=== PATIENT | female | born 1980 | race Caucasian/White ===

== ENCOUNTER 2017-07-16 21:58 | Emergency (ER) | payer MEDICAID ==
[~2017-07-16] VITALS: Ht 165.1 cm; Wt 81.1 kg
[~2017-07-16 21:58] MED LIST: ALBU8.5H4 IH; CLIN-80 PO; GUAI120015 PO
[2017-07-16] MEDS ORDERED: PRED20TA PO (23:53)
[2017-07-16] MEDS ORDERED: albuterol 2.5 MG/3 ML nebule NEB ONE (23:55)
[2017-07-16] MEDS ORDERED: predniSONE 20 mg tablet PO ONE (23:55)
[2017-07-17 00:45] VITALS: BP 133/89
== END 2017-07-17 00:45 | disposition home or self-care (01) ==
LOC: ER 22:00
DX: J45.901 Unspecified asthma with (acute) exacerbation (principal); Z87.442 Personal history of urinary calculi; Z90.49 Acquired absence of other specified parts of digestive tract; Z90.710 Acquired absence of both cervix and uterus; Z56.0 Unemployment, unspecified; Z79.899 Other long term (current) drug therapy; Z91.041 Radiographic dye allergy status; Z88.6 Allergy status to analgesic agent
CPT/HCPCS: 71046; 93005; 94640; 94760; 99284; J7512

== ENCOUNTER 2019-04-14 16:47 | Emergency (ER) | payer MEDICAID ==
[~2019-04-14] VITALS: Ht 165.1 cm; Wt 81.8 kg
[~2019-04-14 16:47] MED LIST changes: -CLIN-80 PO; +CLIN-90 PO
[2019-04-14] MEDS ORDERED: acetaminophen 325mg tablet PO ONE (17:10)
[2019-04-14 18:15] VITALS: BP 118/79
[2019-04-14] MEDS ORDERED: penicillin G benzathine 1.2 million unit/2ml syringe IM ONE (18:45)
[2019-04-14] MEDS ORDERED: AZIT250T83 PO (18:59)
[2019-04-14] MEDS ORDERED: IBUP-1984 PO (18:59)
== END 2019-04-14 19:16 | disposition home or self-care (01) ==
LOC: ER 16:48
DX: S10.91XA Abrasion of unspecified part of neck, initial encounter (principal); J45.909 Unspecified asthma, uncomplicated; J02.9 Acute pharyngitis, unspecified; Z87.442 Personal history of urinary calculi; Z90.49 Acquired absence of other specified parts of digestive tract; Z90.710 Acquired absence of both cervix and uterus; Z56.0 Unemployment, unspecified; Z91.041 Radiographic dye allergy status; Z88.8 Allergy status to other drugs, medicaments and biological substances; Z79.899 Other long term (current) drug therapy; W55.03XA Scratched by cat, initial encounter; Y93.89 Activity, other specified; Y92.89 Other specified places as the place of occurrence of the external cause; Y99.8 Other external cause status
CPT/HCPCS: 87081; 87880; 96372; 99283; J0561

== ENCOUNTER 2019-08-10 05:45 | Emergency (ER) | payer MEDICAID ==
[~2019-08-10] VITALS: Ht 165.1 cm; Wt 103.7 kg
[~2019-08-10 05:45] MED LIST changes: -CLIN-90 PO; +CLIN-97 PO
[2019-08-10 05:50] VITALS: BP 131/87
[2019-08-10] MEDS ORDERED: ketorolac trometh inj. 60 MG/2 ML VIAL IM ONE (06:15)
[2019-08-10] MEDS ORDERED: ACET-3067 PO (06:17)
[2019-08-10] MEDS ORDERED: PENI500T2 PO (06:17)
== END 2019-08-10 06:49 | disposition home or self-care (01) ==
LOC: ER 05:45
DX: K02.9 Dental caries, unspecified (principal); J45.909 Unspecified asthma, uncomplicated; Z87.442 Personal history of urinary calculi; Z90.49 Acquired absence of other specified parts of digestive tract; Z90.710 Acquired absence of both cervix and uterus; Z56.0 Unemployment, unspecified; Z91.041 Radiographic dye allergy status; Z88.8 Allergy status to other drugs, medicaments and biological substances; Z79.899 Other long term (current) drug therapy
CPT/HCPCS: 96372; 99283; J1885

== ENCOUNTER 2024-03-01 18:36 | Emergency (ER) | payer MEDICAID ==
[~2024-03-01] VITALS: Ht 165.1 cm; Wt 93.2 kg
[2024-03-01 18:39] VITALS: BP 127/64; PULSE 100; RESP 17; TEMP 98.1; O2SAT 97
[2024-03-01 20:30] LABS: BASOPHILS % (AUTO) 0.5 % (0-1); EOSINOPHILS # (AUTO) 0.2 X10'3 (0-0.9); EOSINOPHILS % (AUTO) 1.7 % (0-6); HEMATOCRIT 35.6 % (35.0-45.0); HEMOGLOBIN 11.9 g/dl (12.0-16.0); LYMPHOCYTES # (AUTO) 4.8 X10'3 (1.1-4.8); LYMPHOCYTES % (AUTO) 52.2 % (21-51); MEAN CORPUSCULAR HEMOGLOBIN 28.1 PG (27.0-31.0); MEAN CORPUSCULAR HGB CONC 33.5 g/dL (33.0-36.5); MEAN CORPUSCULAR VOLUME 83.8 FL (78-98); MEAN PLATELET VOLUME 8.3 FL (7.4-10.4); MONOCYTES # (AUTO) 0.7 X10'3 (0-0.9); MONOCYTES % (AUTO) 7.5 % (2-12); NEUTROPHILS # (AUTO) 3.5 X10'3 (1.8-7.7); NEUTROPHILS % (AUTO) 38.1 % (42-75); PLATELET COUNT 288 X10'3 (140-440); RED BLOOD COUNT 4.25 X10'6 (4.20-5.60); WHITE BLOOD COUNT 9.2 X10'3 (4.5-11.0)
[2024-03-01 20:47] LABS: ALANINE AMINOTRANSFERASE 19 U/L (12-78); ALBUMIN 3.7 G/DL (3.4-5.0); ALKALINE PHOSPHATASE 119 IU/L (46-116); ANION GAP 7 (8-16); ASPARTATE AMINO TRANSFERASE 22 U/L (10-37); BILIRUBIN,TOTAL 0.2 MG/DL (0.1-1.0); BLOOD UREA NITROGEN 17 MG/DL (7-18); BUN/CREATININE RATIO 21.3 (10.0-20.0); C-REACTIVE PROTEIN 1.59 MG/DL (0.0-0.5); CALCIUM 8.9 MG/DL (8.5-10.1); CHLORIDE 106 MMOL/L (99-107); GLUCOSE 108 MG/DL (70-104); POTASSIUM 3.7 MMOL/L (3.5-5.1); SODIUM 141 MMOL/L (135-145); TOTAL PROTEIN 7.4 G/DL (6.4-8.2); eCRCL 79 ML/MIN; eGFR 77 ML/MIN
[2024-03-01 20:56] LABS: APTT 26 SECONDS (22-32); PROTHROMBIN TIME 9.7 SECONDS (9.0-12.0)
[2024-03-01 20:59] LABS: HCG SERUM QL NEGATIVE
[2024-03-01 21:01] LABS: INR 0.9 INR; TOTAL CELLS COUNTED 100
[2024-03-01 21:06] LABS: BILIRUBIN,URINE NEGATIVE (Neg); CLARITY,URINE CLEAR (Clear); COLOR,URINE YELLOW (Yellow); GLUCOSE, URINE NEGATIVE (Neg); KETONES,URINE NEGATIVE (Neg); LEUKOCYTE ESTERASE ,URINE NEGATIVE (Neg); NITRITES, URINE NEGATIVE (Neg); OCCULT BLOOD,URINE NEGATIVE (Neg); PH,URINE 5.5 (4.8-8.0); PROTEIN,URINE NEGATIVE (Neg); UROBILINOGEN,URINE 0.2 E.U/dL (0.2-1.0)
[2024-03-01 21:09] LABS: UA COLLECTION TYPE CLN CATCH MIDSTREAM
== END 2024-03-01 21:30 | disposition home or self-care (01) ==
LOC: ER 18:37
DX: R59.1 Generalized enlarged lymph nodes (principal); N63.10 Unspecified lump in the right breast, unspecified quadrant; J45.909 Unspecified asthma, uncomplicated; Z91.041 Radiographic dye allergy status; Z88.6 Allergy status to analgesic agent; Z79.899 Other long term (current) drug therapy; Z90.710 Acquired absence of both cervix and uterus; Z90.49 Acquired absence of other specified parts of digestive tract; Z87.442 Personal history of urinary calculi; Z56.0 Unemployment, unspecified
CPT/HCPCS: 36415; 70490; 71250; 80053; 81003; 83605; 84145; 84703; 85007; 85025; 85610; 85651; 85730; 86140; 99284